=== PATIENT | female | born 1955 | race Caucasian/White ===

== ENCOUNTER 2017-02-11 17:50 | Emergency (ER) | payer MEDICAID ==
[~2017-02-11] VITALS: Ht 170.2 cm; Wt 120.7 kg
[~2017-02-11 17:50] MED LIST: ALBMDI INH; ALBU2.5V7 INH; BACL10TA PO; DIAZ5TAB4 PO; DOCU-144 PO; FENT1PAT6 TD; FLO110 INH; FURO-149 PO; LIDP TP; LORA-258 PO; LORA10TA7 PO; MECL25TA3 PO; MONT10TA25 PO; NAPR250T PO; ONDA4TAB5 PO; OXYC5TAB84 PO; PATANOL EACH EYE; POTA-118 PO; PRO40 PO; SENN-153 PO; TAPE100T9 PO
[2017-02-11 17:58] VITALS: BP_SYST 172
[2017-02-11 18:59] LABS: BASOPHILS # (AUTO) 0.2 K/uL (0.0-0.2); BASOPHILS % (AUTO) 3.1 % (0.0-2.0); HEMATOCRIT 48.9 % (36-48); HEMOGLOBIN 16.1 g/dL (12.0-16.0); LYMPHOCYTES % (AUTO) 18.9 % (20.5-51.5); MEAN CORPUSCULAR HEMOGLOBIN 28 pg (27-31); MEAN CORPUSCULAR HGB CONC 33 % (32-36); MEAN CORPUSCULAR VOLUME 85 fL (79.0-98.0); MONOCYTES # (AUTO) 0.3 K/uL (0.0-1.0); MONOCYTES % (AUTO) 6.6 % (1.7-9.3); NEUTROPHILS # (AUTO) 3.6 K/uL (1.8-7.7); NEUTROPHILS % (AUTO) 71.4 % (40.0-70.0); PLATELET COUNT (AUTO) 272 K/uL (130-430); RED BLOOD CELL COUNT(AUTO) 5.73 MIL/uL (4.2-6.2); RED CELL DISTRIBUTION WIDTH 12.7 % (9.0-15.0); WHITE BLOOD COUNT (AUTO) 5.1 K/uL (4.8-10.8)
[2017-02-11 19:31] LABS: CALCIUM 9.8 mg/dL (8.4-11.0); CREATININE 0.76 mg/dL (0.55-1.30); POTASSIUM 3.5 mmol/L (3.5-5.1)
[2017-02-11 19:36] LABS: ALBUMIN 4.5 g/dL (3.4-4.8); TOTAL BILIRUBIN 0.7 mg/dL (0.0-1.0)
[2017-02-11 19:41] LABS: PROTHROMBIN TIME 10.5 SECS (9.5-12.5)
[2017-02-11 20:43] LABS: BILIRUBIN,URINE 1+ (NEGATIVE); BLOOD, URINE 3+ (NEGATIVE); CLARITY/URINE CLEAR (CLEAR); COLOR,URINE YELLOW (YELLOW); GLUCOSE,URINE NEGATIVE (NEGATIVE); KETONES,URINE 1+ (NEGATIVE); LEUKOCYTE ESTERASE ,URINE TRACE (NEGATIVE); NITRITE, URINE NEGATIVE (NEGATIVE); PROTEIN URINE TRACE (NEGATIVE)
[2017-02-11 21:06] LABS: BACTERIA,URINE FEW /HPF (None Seen)
[2017-02-11] MEDS ORDERED: NS 500 ML IV ONE (23:30)
[2017-02-12] MEDS ORDERED: PROMETHAZINE HCL 50 MG/ML AMP IM ONE (01:00)
[2017-02-12 01:38] VITALS: BP_SYST 136
== END 2017-02-12 01:38 | disposition home or self-care (01) ==
LOC: SED 17:50
DX: K52.9 Noninfective gastroenteritis and colitis, unspecified (principal); J44.9 Chronic obstructive pulmonary disease, unspecified; I10 Essential (primary) hypertension; Z90.49 Acquired absence of other specified parts of digestive tract; Z98.51 Tubal ligation status; Z88.0 Allergy status to penicillin; Z88.1 Allergy status to other antibiotic agents
CPT/HCPCS: 36415; 80053; 81000; 83690; 84702; 85025; 85610; 85730; 93005; 96360; 96372; 99285; J2550; J7040

== ENCOUNTER 2021-05-31 03:43 | Inpatient (IN) | payer MEDICAID, SELFPAY ==
[~2021-05-31] VITALS: Ht 170.2 cm; Wt 117.0 kg
[~2021-05-31 03:43] MED LIST changes: +MONT-40 PO; -MONT10TA25 PO; -OXYC5TAB84 PO; +OXYIR5 PO; -POTA-118 PO; +POTA10TA15 PO
[2021-05-31 04:09] VITALS: BP_SYST 130
[2021-05-31] MEDS ORDERED: NACL 0.9% 1,000 ML IV ONE (04:15)
[2021-05-31 04:35] LABS: BILIRUBIN,URINE NEGATIVE (NEGATIVE); COLOR,URINE RED (YELLOW); GLUCOSE,URINE 1+ (NEGATIVE); KETONES,URINE 1+ (NEGATIVE); LEUKOCYTE ESTERASE ,URINE 1+ (NEGATIVE); NITRITE, URINE POSITIVE (NEGATIVE); PH,URINE 6.5 (5.0-8.0); PROTEIN URINE 3+ (NEGATIVE)
[2021-05-31 04:41] LABS: BLOOD, URINE TRACE (NEGATIVE)
[2021-05-31 04:42] LABS: CLARITY/URINE TURBID (CLEAR)
[2021-05-31 05:08] LABS: BACTERIA,URINE FEW /HPF (None Seen); RBC,URINE 50-80 /HPF (0-3)
[2021-05-31 05:10] LABS: MUCUS,URINE 4+ /LPF (None Seen)
[2021-05-31] MEDS ORDERED: cefTRIAXone 2 GM VIAL ONE (05:17)
[2021-05-31 05:22] LABS: URINE SULFO SALICYLIC ACID NEGATIVE (NEGATIVE)
[2021-05-31 06:07] LABS: BASOPHILS % (AUTO) 0.6 % (0.0-2.0); EOSINOPHILS % (AUTO) 0.2 % (0.0-4.0); HEMATOCRIT 40.1 % (36-48); HEMOGLOBIN 13.2 g/dL (12.0-16.0); LYMPHOCYTES # (AUTO) 1.4 K/uL (1.0-5.5); LYMPHOCYTES % (AUTO) 37.9 % (20.5-51.5); MEAN CORPUSCULAR HEMOGLOBIN 28 pg (27-31); MEAN CORPUSCULAR HGB CONC 33 % (32-36); MEAN CORPUSCULAR VOLUME 84 fL (79.0-98.0); MONOCYTES # (AUTO) 0.4 K/uL (0.0-1.0); MONOCYTES % (AUTO) 10.4 % (1.7-9.3); NEUTROPHILS # (AUTO) 1.9 K/uL (1.8-7.7); NEUTROPHILS % (AUTO) 50.9 % (40.0-70.0); PLATELET COUNT (AUTO) 224 K/uL (130-430); RED BLOOD CELL COUNT(AUTO) 4.79 MIL/uL (4.2-6.2); RED CELL DISTRIBUTION WIDTH 14.9 % (9.0-15.0); WHITE BLOOD COUNT (AUTO) 3.7 K/uL (4.8-10.8)
[2021-05-31 06:12] LABS: CALCIUM 8.8 mg/dL (8.4-11.0); CREATININE 0.83 mg/dL (0.55-1.30); POTASSIUM 3.7 mmol/L (3.5-5.1)
[2021-05-31 06:18] LABS: ALBUMIN 3.7 g/dL (3.4-4.8); TOTAL BILIRUBIN 0.3 mg/dL (0.0-1.0)
[2021-05-31] MEDS ORDERED: ONDANSETRON HCL 4 MG/2 ML VIAL ONE (06:21)
[2021-05-31] MEDS ORDERED: MORPHINE 4 MG INJ. 4 MG/ML VIAL ONE (06:22)
[2021-05-31] MEDS ORDERED: ONDANSETRON HCL 4 MG/2 ML VIAL IVP ONE (06:30)
[2021-05-31] MEDS ORDERED: MORPHINE 4 MG INJ. 4 MG/ML VIAL IVP ONE (06:30)
[2021-05-31] MEDS ORDERED: HYDR2TAB4 PO (09:33)
[2021-05-31] MEDS ORDERED: RIME75TA PO (09:33)
[2021-05-31 12:00] VITALS: BP_SYST 161
[2021-05-31 12:04] VITALS: BP_SYST 161
[2021-05-31] MEDS ORDERED: BACLOFEN 10 MG TABLET PO SCH (12:15)
[2021-05-31] MEDS ORDERED: DIAZEPAM 5 MG TABLET (VALIUM) PO SCH (12:15)
[2021-05-31] MEDS ORDERED: RIMEGEPANT SULFATE PO SCH (12:15)
[2021-05-31] MEDS ORDERED: ALBUTEROL SULFATE 0.083% 2.5 MG/3 ML VIAL.NEB INH PRN (12:15)
[2021-05-31] MEDS ORDERED: LORazepam 1 MG TABLET PO SCH (12:15)
[2021-05-31] MEDS ORDERED: ONDANSETRON 4 MG ODT TAB PO SCH (12:15)
[2021-05-31] MEDS ORDERED: oxyCODONE HCL 5 MG TABLET PO PRN (12:15)
[2021-05-31] MEDS ORDERED: POTASSIUM CHLORIDE 10 MEQ TAB.PRT.SR PO SCH (12:15)
[2021-05-31] MEDS ORDERED: NALOXONE HCL 0.4 MG/ML AMP (NARCAN) IVP PRN (12:15)
[2021-05-31] MEDS ORDERED: LIDOCAINE PATCH 5% 1 EA TP ONE (13:49)
[2021-05-31] MEDS ORDERED: NORMAL SALINE 5 ML DISP.SYRIN IVF SCH (14:00)
[2021-05-31] MEDS: NORMAL SALINE 5 ML DISP.SYRIN IVF SCH ×2 (14:04→21:15)
[2021-05-31] MEDS: SENNOSIDES 8.6 MG TABLET PO SCH ×2 (14:05→21:14)
[2021-05-31] MEDS ORDERED: fentaNYL 50 MCG/HR PATCH TD SCH ×3 (14:30→21:00)
[2021-05-31] MEDS ORDERED: TRAZ-251 PO (15:26)
[2021-05-31] MEDS ORDERED: NITSL SL (15:28)
[2021-05-31] MEDS ORDERED: HYDROmorphone 2 MG TAB ONE (16:52)
[2021-05-31] MEDS ORDERED: fentaNYL 25 MCG/HR PATCH TD SCH (17:00)
[2021-05-31 17:14] VITALS: BP_SYST 101
[2021-05-31] MEDS: BUDESONIDE 0.5 MG/2 ML AMPUL.NEB INH SCH (19:30)
[2021-05-31] MEDS ORDERED: OLOPATADINE HCL Non-Formulary 5 ML DROPS OP SCH (21:00)
[2021-05-31] MEDS ORDERED: TAPENTADOL HCL 50 MG TAB.ER.12H PO SCH (21:00)
[2021-05-31] MEDS: DOCUSATE SODIUM 100 MG CAPSULE PO SCH (21:14)
[2021-05-31] MEDS: HYDROmorphone 2 MG TAB PO SCH ×2 (21:14→23:16)
[2021-05-31] MEDS: NAPROXEN 250 MG TABLET PO SCH (21:15)
[2021-05-31] MEDS ORDERED: traZODone HCL 50 MG TABLET (DESYREL) PO ONE (22:00)
[2021-05-31] MEDS ORDERED: DIAZEPAM 5 MG TABLET (VALIUM) PO ONE (23:00)
[2021-05-31] MEDS ORDERED: BACLOFEN 10 MG TABLET PO ONE (23:00)
[2021-06-01 00:23] VITALS: BP_SYST 153
[2021-06-01] MEDS: NORMAL SALINE 5 ML DISP.SYRIN IVF SCH ×2 (06:00→12:21)
[2021-06-01 06:48] LABS: CALCIUM 8.6 mg/dL (8.4-11.0); CREATININE 0.72 mg/dL (0.55-1.30); POTASSIUM 4.3 mmol/L (3.5-5.1)
[2021-06-01] MEDS: BUDESONIDE 0.5 MG/2 ML AMPUL.NEB INH SCH (07:00)
[2021-06-01 08:00] VITALS: BP_SYST 120
[2021-06-01] MEDS ORDERED: FUROSEMIDE 40 MG TABLET PO SCH (09:00)
[2021-06-01] MEDS ORDERED: cefTRIAXone 1 GM IVPB PREMIX 50 ML IV SCH (09:00)
[2021-06-01] MEDS ORDERED: DIAZEPAM 5 MG TABLET (VALIUM) PO SCH (09:00)
[2021-06-01] MEDS ORDERED: LORATADINE 10 MG TABLET PO SCH (09:00)
[2021-06-01] MEDS ORDERED: PANTOPRAZOLE SODIUM 40 MG TAB PO SCH (09:00)
[2021-06-01] MEDS ORDERED: BACLOFEN 10 MG TABLET PO SCH (09:00)
[2021-06-01] MEDS ORDERED: LIDOCAINE PATCH 5% 1 EA TP SCH ×3 (09:00)
[2021-06-01] MEDS ORDERED: APIXABAN 2.5 MG TABLET PO SCH (09:00)
[2021-06-01] MEDS ORDERED: MONTELUKAST 10 MG TABLET PO SCH (09:00)
[2021-06-01] MEDS: HYDROmorphone 2 MG TAB PO SCH (09:18)
[2021-06-01] MEDS: NAPROXEN 250 MG TABLET PO SCH (09:20)
[2021-06-01] MEDS: DOCUSATE SODIUM 100 MG CAPSULE PO SCH (09:20)
[2021-06-01] MEDS: SENNOSIDES 8.6 MG TABLET PO SCH (09:23)
[2021-06-01 09:42] LABS: HEMATOCRIT 38.5 % (36-48); HEMOGLOBIN 12.6 g/dL (12.0-16.0); MEAN CORPUSCULAR HEMOGLOBIN 28 pg (27-31); MEAN CORPUSCULAR VOLUME 84 fL (79.0-98.0); RED BLOOD CELL COUNT(AUTO) 4.57 MIL/uL (4.2-6.2); WHITE BLOOD COUNT (AUTO) 2.2 K/uL (4.8-10.8)
[2021-06-01 09:43] LABS: MEAN CORPUSCULAR HGB CONC 33 % (32-36); PLATELET COUNT (AUTO) 218 K/uL (130-430); RED CELL DISTRIBUTION WIDTH 15.3 % (9.0-15.0)
[2021-06-01] MEDS ORDERED: PHEN-726 PO (12:20)
[2021-06-01] MEDS ORDERED: NITR-85 PO (12:20)
[2021-06-01 12:23] VITALS: BP_SYST 110
[2021-06-01 15:00] LABS: ATYPICAL LYMPHOCYTES % 0 % (0-0); BAND % (MANUAL) 0 % (0-6); BASOPHILS % (MANUAL) 0 % (0-2); EOSINOPHILS % (MANUAL) 1 % (0-7); LYMPHOCYTES % (MANUAL) 51 % (20-46); MONOCYTES % (MANUAL) 10 % (0-11)
[2021-06-01 15:51] VITALS: BP_SYST 110
[2021-06-01] MEDS ORDERED: traZODone HCL 50 MG TABLET (DESYREL) PO SCH (21:00)
[2021-06-02] MEDS ORDERED: fentaNYL 50 MCG/HR PATCH TD SCH (09:00)
== END 2021-06-01 16:10 | disposition home or self-care (01) | DRG 463 ==
LOC: SED 03:43 → SMU 05:57
PROVIDERS: ADMIT Internal Medicine Hospice and Palliative Medicine; ATTEND Internal Medicine Hospice and Palliative Medicine
DX: N10 Acute pyelonephritis (principal); I48.92 Unspecified atrial flutter; Z20.822 Contact with and (suspected) exposure to COVID-19; Z60.2 Problems related to living alone; I12.9 Hypertensive chronic kidney disease with stage 1 through stage 4 chronic kidney disease, or unspecified chronic kidney disease; N18.9 Chronic kidney disease, unspecified; J44.9 Chronic obstructive pulmonary disease, unspecified; Z90.49 Acquired absence of other specified parts of digestive tract; Z95.0 Presence of cardiac pacemaker; Z88.1 Allergy status to other antibiotic agents; Z88.0 Allergy status to penicillin; Z88.8 Allergy status to other drugs, medicaments and biological substances; Z79.899 Other long term (current) drug therapy; Z87.01 Personal history of pneumonia (recurrent); Z86.711 Personal history of pulmonary embolism; Z98.891 History of uterine scar from previous surgery
CPT/HCPCS: 36415; 76770; 80048; 80053; 81000; 83605; 85007; 85025; 85027; 87040; 87086; 93005; J0696; J2270; J2405; J7626

== ENCOUNTER 2021-08-20 12:48 | Emergency (ER) | payer MEDICAID ==
[~2021-08-20] VITALS: Ht 167.6 cm; Wt 81.6 kg
[~2021-08-20 12:48] MED LIST changes: +HYDR2TAB4 PO; +NITR-85 PO; +NITSL SL; +PHEN-726 PO; +RIME75TA PO; +TRAZ-251 PO
[2021-08-20 13:11] VITALS: BP_SYST 111
[2021-08-20] MEDS ORDERED: EPINEPHRINE HCL/PF 1 MG/ML AMP IM ONE (14:30)
[2021-08-20] MEDS ORDERED: EPIN0.3P3 IM (15:21)
[2021-08-20 15:29] VITALS: BP_SYST 147
== END 2021-08-20 16:03 | disposition home or self-care (01) ==
LOC: SED 12:48
DX: H10.13 Acute atopic conjunctivitis, bilateral (principal); I10 Essential (primary) hypertension; J45.909 Unspecified asthma, uncomplicated; Z88.1 Allergy status to other antibiotic agents; Z88.0 Allergy status to penicillin; Z79.899 Other long term (current) drug therapy
CPT/HCPCS: 93005; 96372; 99283; J0171

== ENCOUNTER 2021-09-28 11:39 | Emergency (ER) | payer MEDICAID ==
[~2021-09-28] VITALS: Ht 170.2 cm; Wt 108.9 kg
[~2021-09-28 11:39] MED LIST changes: +EPIN0.3P3 IM
--- NOTE | 2021-09-28 11:42 | NUR ---
Pt brought by self, A&Ox4, pt presents to ER with pain/ skin rash on L side of the body , pt states she was diagnosed with shingles aprox 3 weeks ago, pt afebrile, VSS, skin pink and warm, cap refill <3, VSS.
[2021-09-28 12:07] VITALS: BP_SYST 127
--- NOTE | 2021-09-28 14:00 | NUR ---
Pt A&Ox4, respirations even and unlabored, cap refill <3, will cont to monitor.
[2021-09-28 17:42] LABS: BASOPHILS % (AUTO) 0.2 % (0.0-2.0); EOSINOPHILS % (AUTO) 0.8 % (0.0-4.0); HEMATOCRIT 39.8 % (36-48); HEMOGLOBIN 13.5 g/dL (12.0-16.0); LYMPHOCYTES # (AUTO) 1.4 K/uL (1.0-5.5); LYMPHOCYTES % (AUTO) 36.5 % (20.5-51.5); MEAN CORPUSCULAR HEMOGLOBIN 28 pg (27-31); MEAN CORPUSCULAR HGB CONC 34 % (32-36); MEAN CORPUSCULAR VOLUME 83 fL (79.0-98.0); MONOCYTES # (AUTO) 0.3 K/uL (0.0-1.0); NEUTROPHILS # (AUTO) 2.2 K/uL (1.8-7.7); NEUTROPHILS % (AUTO) 54.5 % (40.0-70.0); PLATELET COUNT (AUTO) 241 K/uL (130-430); RED BLOOD CELL COUNT(AUTO) 4.82 MIL/uL (4.2-6.2); RED CELL DISTRIBUTION WIDTH 16.2 % (9.0-15.0); WHITE BLOOD COUNT (AUTO) 3.9 K/uL (4.8-10.8)
[2021-09-28 17:50] LABS: ANION GAP 13 (5-15); CALCIUM 9.1 mg/dL (8.4-11.0); CHLORIDE 102 mmol/L (98-107); CREATININE 0.67 mg/dL (0.55-1.30); GLUCOSE 95 mg/dL (70-99); POTASSIUM 3.8 mmol/L (3.5-5.1); SODIUM SERUM 140 mmol/L (136-145); UREA NITROGEN, BLOOD 17 mg/dL (8-21)
[2021-09-28 17:51] LABS: GFR AFRICAN AMERICAN 114 mL/min (>90)
[2021-09-28 17:52] LABS: INR 1.1 (0.8-1.2); PROTHROMBIN TIME 10.7 SECS (9.5-12.5)
[2021-09-28 17:59] LABS: ALANINE AMINOTRANSFERASE 15 U/L (12-78); ALBUMIN 3.6 g/dL (3.4-4.8); ASPARTATE AMINOTRANSFERASE 20 U/L (10-37); TOTAL BILIRUBIN 0.6 mg/dL (0.0-1.0)
--- NOTE | 2021-09-28 19:00 | NUR ---
Notified doctor Belinda need for MSE, awaiting for room availability.
--- NOTE | 2021-09-28 20:00 | NUR ---
Notified Dr Trevino need for MSE, pt crying and complain she has not been seen.
[2021-09-28] MEDS ORDERED: CLE150 PO ×2 (21:31)
--- NOTE | 2021-09-28 21:31 | NUR ---
Dr Trevino evaluating patient at this time
[2021-09-28] MEDS ORDERED: BACITRACIN 1 GM OINT TP ONE (21:45)
[2021-09-28] MEDS ORDERED: CLIN-142 PO (21:58)
--- NOTE | 2021-09-28 22:10 | NUR ---
Patient given written and verbal discharge instructions and verbalizes understanding. ER MD discussed with patient the results and treatment provided. Patient in stable condition. ID arm band removed. Rx of Clindamycin given. Patient educated on pain management and to follow up with PMD. Pain improved. Opportunity for questions provided and answered. Medication side effect fact sheet provided.
== END 2021-09-28 22:33 | disposition home or self-care (01) ==
LOC: SED 11:39
DX: B02.9 Zoster without complications (principal); R21 Rash and other nonspecific skin eruption; J44.9 Chronic obstructive pulmonary disease, unspecified; I10 Essential (primary) hypertension; Z88.0 Allergy status to penicillin; Z88.1 Allergy status to other antibiotic agents; Z88.8 Allergy status to other drugs, medicaments and biological substances; Z79.899 Other long term (current) drug therapy
CPT/HCPCS: 36415; 80053; 83605; 84484; 85025; 85610-TC; 85730-TC; 87040; 99283

== ENCOUNTER 2021-10-24 16:18 | Emergency (ER) | payer MEDICAID ==
[~2021-10-24] VITALS: Ht 170.2 cm; Wt 108.4 kg
[~2021-10-24 16:18] MED LIST changes: +CLIN-142 PO
[2021-10-24 17:32] VITALS: BP_SYST 129
[2021-10-24 19:50] LABS: CALCIUM 9.6 mg/dL (8.4-11.0); CREATININE 0.86 mg/dL (0.55-1.30); POTASSIUM 3.4 mmol/L (3.5-5.1)
[2021-10-24 19:55] LABS: BASOPHILS # (AUTO) 0.1 K/uL (0.0-0.2); BASOPHILS % (AUTO) 0.9 % (0.0-2.0); EOSINOPHILS % (AUTO) 0.4 % (0.0-4.0); HEMATOCRIT 44.5 % (36-48); HEMOGLOBIN 14.9 g/dL (12.0-16.0); LYMPHOCYTES # (AUTO) 1.6 K/uL (1.0-5.5); LYMPHOCYTES % (AUTO) 23.9 % (20.5-51.5); MEAN CORPUSCULAR HEMOGLOBIN 28 pg (27-31); MEAN CORPUSCULAR HGB CONC 34 % (32-36); MEAN CORPUSCULAR VOLUME 83 fL (79.0-98.0); MONOCYTES # (AUTO) 0.5 K/uL (0.0-1.0); MONOCYTES % (AUTO) 7.5 % (1.7-9.3); NEUTROPHILS # (AUTO) 4.6 K/uL (1.8-7.7); NEUTROPHILS % (AUTO) 67.3 % (40.0-70.0); PLATELET COUNT (AUTO) 252 K/uL (130-430); RED BLOOD CELL COUNT(AUTO) 5.35 MIL/uL (4.2-6.2); RED CELL DISTRIBUTION WIDTH 15.6 % (9.0-15.0); WHITE BLOOD COUNT (AUTO) 6.8 K/uL (4.8-10.8)
[2021-10-24 19:56] LABS: ALBUMIN 3.6 g/dL (3.4-4.8); TOTAL BILIRUBIN 0.8 mg/dL (0.0-1.0)
[2021-10-24] MEDS ORDERED: POTASSIUM CHLORIDE 20 MEQ/PKT PACKET PO ONE (22:00)
== END 2021-10-24 22:24 | disposition home or self-care (01) ==
LOC: SED 16:18
DX: L30.9 Dermatitis, unspecified (principal); E87.6 Hypokalemia; R21 Rash and other nonspecific skin eruption; Z79.899 Other long term (current) drug therapy
CPT/HCPCS: 36415; 80053; 85025; 99283